=== PATIENT | female | born 1980 | race Caucasian/White ===

== ENCOUNTER 2016-09-29 12:53 | Inpatient (IN) | payer BC ==
[~2016-09-29] VITALS: Ht 162.6 cm; Wt 71.2 kg
[2016-09-29] MEDS: LR 1,000 ML IV SCH ×2 (13:29→14:25)
[2016-09-29 14:30] VITALS: BP_SYST 101
[2016-09-29] MEDS ORDERED: LR 1,000 ML IV ONE (17:05)
[2016-09-29] MEDS ORDERED: DINOPROSTONE 10 MG SUPP VG ONE ×2 (17:15→22:00)
[2016-09-29] MEDS ORDERED: TERBUTALINE SULFATE 1 MG/ML VIAL SUBCUT ONE (17:15)
[2016-09-29] MEDS ORDERED: NALBUPHINE HCL 10 MG/ML AMP IVP PRN (17:15)
[2016-09-29 17:32] LABS: BASOPHILS % (AUTO) 0.2 % (0.0-2.0); EOSINOPHILS # (AUTO) 0.2 K/uL (0.0-0.4); EOSINOPHILS % (AUTO) 1.7 % (0.0-4.0); HEMATOCRIT 34.3 % (36-48); HEMOGLOBIN 11.3 g/dL (12.0-16.0); LYMPHOCYTES # (AUTO) 1.8 K/uL (1.0-5.5); LYMPHOCYTES % (AUTO) 14.7 % (20.5-51.5); MEAN CORPUSCULAR HEMOGLOBIN 32 pg (27-31); MEAN CORPUSCULAR HGB CONC 33 % (32-36); MEAN CORPUSCULAR VOLUME 98 fL (79.0-98.0); MONOCYTES # (AUTO) 0.5 K/uL (0.0-1.0); MONOCYTES % (AUTO) 4.1 % (1.7-9.3); NEUTROPHILS # (AUTO) 10.1 K/uL (1.8-7.7); NEUTROPHILS % (AUTO) 79.3 % (40.0-70.0); PLATELET COUNT (AUTO) 273 K/uL (130-430); RED BLOOD CELL COUNT(AUTO) 3.48 MIL/uL (4.2-6.2); RED CELL DISTRIBUTION WIDTH 12.5 % (9.0-15.0); WHITE BLOOD COUNT (AUTO) 12.6 K/uL (4.8-10.8)
[2016-09-30] MEDS: LR 1,000 ML IV SCH (04:03)
[2016-09-30] MEDS ORDERED: OXYTOCIN/NORMAL SALINE 1,000 ML IV SCH ×2 (07:15→14:34)
[2016-09-30] MEDS ORDERED: FENT2mCg/mL-ROPIVA0.2%/NS EPID 150 ML EP ONE (07:28)
[2016-09-30] MEDS ORDERED: FENT2mCg/mL-ROPIVA0.2%/NS EPID 150 ML EP SCH (07:28)
[2016-09-30] MEDS ORDERED: TERBUTALINE SULFATE 1 MG/ML VIAL SUBCUT ONE (08:30)
[2016-09-30] MEDS ORDERED: OXYTOCIN/NORMAL SALINE 1,000 ML IV ONE (14:34)
[2016-09-30] MEDS ORDERED: DERMOPLAST SPRAY TP PRN (14:45)
[2016-09-30] MEDS ORDERED: ANUSOL 1 EA SUPP.RECT (PREPARATION H) RC PRN (14:45)
[2016-09-30] MEDS ORDERED: METHYLERGONOVINE MALEATE 0.2 MG TABLET PO PRN (14:45)
[2016-09-30] MEDS ORDERED: LANOLIN 7 GM OINT. TP PRN (14:45)
[2016-09-30] MEDS ORDERED: DOCUSATE SODIUM 100 MG CAPSULE PO PRN (14:45)
[2016-09-30] MEDS ORDERED: SENNOSIDES/DOCUSATE SODIUM 1 TAB TABLET(SENOKOT-S) PO PRN (14:45)
[2016-09-30] MEDS ORDERED: HYDROCORTISONE 0.5%, 28.35 GM TOPICAL CREAM TP PRN (14:45)
[2016-09-30] MEDS ORDERED: OXYCODONE/ACETAMINOPHEN 5-325 TABLET PO PRN (14:45)
[2016-09-30] MEDS ORDERED: GLYCERIN/WITCH HAZEL (TUCKS PADS) TP PRN (14:45)
[2016-09-30] MEDS: OXYCODONE/ACETAMINOPHEN 5-325 TABLET PO PRN ×2 (16:16→21:38)
[2016-09-30] MEDS: IBUPROFEN 600 MG TABLET PO SCH ×2 (17:56→23:34)
[2016-09-30] MEDS ORDERED: TEMAZEPAM 15 MG CAPSULE PO PRN (21:00)
[2016-10-01] MEDS: OXYCODONE/ACETAMINOPHEN 5-325 TABLET PO PRN ×3 (06:03→15:16)
[2016-10-01] MEDS: IBUPROFEN 600 MG TABLET PO SCH ×3 (06:04→17:47)
[2016-10-01 07:00] LABS: EOSINOPHILS # (AUTO) 0.4 K/uL (0.0-0.4); HEMOGLOBIN 10.5 g/dL (12.0-16.0); MEAN CORPUSCULAR HGB CONC 33 % (32-36); MONOCYTES # (AUTO) 1.1 K/uL (0.0-1.0)
[2016-10-01 07:10] LABS: BASOPHILS % (AUTO) 0.1 % (0.0-2.0); EOSINOPHILS % (AUTO) 2.5 % (0.0-4.0); HEMATOCRIT 31.4 % (36-48); LYMPHOCYTES # (AUTO) 2.3 K/uL (1.0-5.5); LYMPHOCYTES % (AUTO) 14.1 % (20.5-51.5); MEAN CORPUSCULAR HEMOGLOBIN 33 pg (27-31); MEAN CORPUSCULAR VOLUME 98 fL (79.0-98.0); MONOCYTES % (AUTO) 6.9 % (1.7-9.3); NEUTROPHILS # (AUTO) 12.4 K/uL (1.8-7.7); NEUTROPHILS % (AUTO) 76.4 % (40.0-70.0); PLATELET COUNT (AUTO) 247 K/uL (130-430); RED BLOOD CELL COUNT(AUTO) 3.19 MIL/uL (4.2-6.2); RED CELL DISTRIBUTION WIDTH 12.5 % (9.0-15.0); WHITE BLOOD COUNT (AUTO) 16.2 K/uL (4.8-10.8)
[2016-10-01] MEDS ORDERED: MINERAL OIL 30 ML UDC PO ONE (19:49)
== END 2016-10-01 19:50 | disposition home or self-care (01) | DRG 775 ==
LOC: SPU 12:53 → OBSVTOIN 12:53 → SPU 18:10
PROVIDERS: ADMIT Specialist; ATTEND Specialist
PROC: 10E0XZZ Delivery of Products of Conception, External Approach (ICD-10-PCS; principal; 2016-09-30)
PROC: 4A0HXCZ Measurement of Products of Conception, Cardiac Rate, External Approach (ICD-10-PCS; 2016-09-30)
PROC: 0W8NXZZ Division of Female Perineum, External Approach (ICD-10-PCS; 2016-09-30)
PROC: 3E0S3CZ (ICD-10-PCS; 2016-09-30)
PROC: 00HU33Z Insertion of Infusion Device into Spinal Canal, Percutaneous Approach (ICD-10-PCS; 2016-09-30)
PROC: 3E0P7GC Introduction of Other Therapeutic Substance into Female Reproductive, Via Natural or Artificial Opening (ICD-10-PCS; 2016-09-30)
DX: O41.03X0 Oligohydramnios, third trimester, not applicable or unspecified (principal); O36.5930 Maternal care for other known or suspected poor fetal growth, third trimester, not applicable or unspecified; O76 Abnormality in fetal heart rate and rhythm complicating labor and delivery; Z3A.37 37 weeks gestation of pregnancy; Z37.0 Single live birth; O09.523 Supervision of elderly multigravida, third trimester
CPT/HCPCS: 36415; 81002-TC; 85025; 86592; 86886; 86900; 86901; 94760; J2300; J2590; J3010; J7120

== ENCOUNTER 2017-06-19 16:14 | Emergency (ER) | payer BC ==
[~2017-06-19] VITALS: Ht 162.6 cm; Wt 71.2 kg
[2017-06-19 16:21] VITALS: BP_SYST 111
[2017-06-19 17:31] LABS: BASOPHILS % (AUTO) 0.2 % (0.0-2.0); EOSINOPHILS # (AUTO) 0.8 K/uL (0.0-0.4); EOSINOPHILS % (AUTO) 10.8 % (0.0-4.0); HEMOGLOBIN 13.7 g/dL (12.0-16.0); LYMPHOCYTES # (AUTO) 2.2 K/uL (1.0-5.5); MEAN CORPUSCULAR HEMOGLOBIN 34 pg (27-31); MEAN CORPUSCULAR HGB CONC 34 % (32-36); MEAN CORPUSCULAR VOLUME 98 fL (79.0-98.0); MONOCYTES # (AUTO) 0.5 K/uL (0.0-1.0); MONOCYTES % (AUTO) 6.9 % (1.7-9.3); NEUTROPHILS % (AUTO) 53.1 % (40.0-70.0); PLATELET COUNT (AUTO) 291 K/uL (130-430); RED BLOOD CELL COUNT(AUTO) 4.07 MIL/uL (4.2-6.2); RED CELL DISTRIBUTION WIDTH 12.1 % (9.0-15.0); WHITE BLOOD COUNT (AUTO) 7.5 K/uL (4.8-10.8)
[2017-06-19 17:35] LABS: CALCIUM 9.2 mg/dL (8.4-11.0); CREATININE 0.46 mg/dL (0.55-1.30); POTASSIUM 3.4 mmol/L (3.5-5.1)
[2017-06-19 17:38] LABS: PROTHROMBIN TIME 10.3 SECS (9.5-12.5)
[2017-06-19 18:11] LABS: ALBUMIN 3.9 g/dL (3.4-4.8); TOTAL BILIRUBIN 0.2 mg/dL (0.0-1.0)
[2017-06-19 18:42] LABS: BILIRUBIN,URINE NEGATIVE (NEGATIVE); BLOOD, URINE 3+ (NEGATIVE); CLARITY/URINE CLEAR (CLEAR); COLOR,URINE YELLOW (YELLOW); GLUCOSE,URINE NEGATIVE (NEGATIVE); KETONES,URINE NEGATIVE (NEGATIVE); LEUKOCYTE ESTERASE ,URINE NEGATIVE (NEGATIVE); NITRITE, URINE NEGATIVE (NEGATIVE); PROTEIN URINE NEGATIVE (NEGATIVE); UROBILINOGEN,URINE 0.2 (0.2-1.0)
[2017-06-19 18:49] LABS: BACTERIA,URINE None Seen /HPF (None Seen); RBC,URINE 0-3 /HPF (0-3); WBC,URINE NONE SEEN /HPF (0-3)
[2017-06-19 18:50] LABS: MUCUS,URINE None Seen /LPF (None Seen)
[2017-06-19 18:51] VITALS: BP_SYST 111
== END 2017-06-19 18:51 | disposition home or self-care (01) ==
LOC: SED 16:14
DX: O20.9 Hemorrhage in early pregnancy, unspecified (principal); Z3A.09 9 weeks gestation of pregnancy
CPT/HCPCS: 36415; 76801; 76817; 80053; 81000-TC; 84702-TC; 85025; 85610-TC; 85730-TC; 99285

== ENCOUNTER 2018-02-21 20:18 | Emergency (ER) | payer BC ==
[~2018-02-21] VITALS: Ht 162.6 cm; Wt 72.6 kg
[2018-02-21 20:24] VITALS: BP_SYST 129
--- NOTE | 2018-02-21 20:29 | NUR ---
Patient triaged and placed in waiting room. VSS and patient appears in no acute distress at this time. Accompanied by SELF, awaiting available bed, and MD notified of need for MSE.
--- NOTE | 2018-02-21 21:08 | NUR ---
Patient to ER bed 08 to gown for evaluation. Side rails up. Report given to LEIA Peters
--- NOTE | 2018-02-21 21:15 | NUR ---
Pt brought by self, A&Ox4, pt presents to ER with vaginal bleeding and cramping , states she is 4 weeks , pt completed 5 test at home and they were positive, current test is negative, skin pink and warm, cap refill <3, denies N/V/D.
--- NOTE | 2018-02-21 21:20 | NUR ---
Dr Dick at bedside examining patient.
--- NOTE | 2018-02-21 22:18 | NUR ---
Pt A&Ox4, respirations even and unlabored
[2018-02-21 22:40] VITALS: BP_SYST 129
--- NOTE | 2018-02-21 22:43 | NUR ---
Patient given written and verbal discharge instructions and verbalizes understanding. ER MD discussed with patient the results and treatment provided. Patient in stable condition. ID arm band removed. No Rx given. Patient educated on pain management and to follow up with PMD. Pain Scale 0/10 tolerable for pt . Opportunity for questions provided and answered. Medication side effect fact sheet provided.
== END 2018-02-21 22:40 | disposition home or self-care (01) ==
LOC: SED 20:18
DX: O26.891 Other specified pregnancy related conditions, first trimester (principal); N92.0 Excessive and frequent menstruation with regular cycle; Z3A.01 Less than 8 weeks gestation of pregnancy; R03.0 Elevated blood-pressure reading, without diagnosis of hypertension
CPT/HCPCS: 36415; 84702-TC; 99283

== ENCOUNTER 2018-11-10 16:10 | Observation (INO) | payer BC | END 2018-11-10 18:07 | disposition home or self-care (01) | LOC: SPU 16:10 | PROVIDERS: ADMIT Specialist; ATTEND Specialist | DX: O62.9 Abnormality of forces of labor, unspecified (principal); Z3A.34 34 weeks gestation of pregnancy | CPT/HCPCS: G0378 ==

== ENCOUNTER 2018-12-09 13:20 | Inpatient (IN) | payer BC ==
[~2018-12-09] VITALS: Ht 162.6 cm; Wt 69.9 kg
[2018-12-09] MEDS ORDERED: LR 1,000 ML IV SCH (13:27)
[2018-12-09] MEDS ORDERED: OXYTOCIN/0.9 % SODIUM CHLORIDE 1,000 ML IV SCH (13:27)
[2018-12-09] MEDS ORDERED: DINOPROSTONE 10 MG SUPP VG ONE (13:30)
[2018-12-09] MEDS ORDERED: NALBUPHINE HCL 10 MG/ML AMP IVP PRN (13:30)
[2018-12-09 14:25] LABS: BASOPHILS % (AUTO) 0.3 % (0.0-2.0); EOSINOPHILS # (AUTO) 0.1 K/uL (0.0-0.4); EOSINOPHILS % (AUTO) 1.3 % (0.0-4.0); HEMATOCRIT 34.4 % (36-48); HEMOGLOBIN 11.7 g/dL (12.0-16.0); LYMPHOCYTES # (AUTO) 1.1 K/uL (1.0-5.5); LYMPHOCYTES % (AUTO) 12.8 % (20.5-51.5); MEAN CORPUSCULAR HEMOGLOBIN 34 pg (27-31); MEAN CORPUSCULAR HGB CONC 34 % (32-36); MEAN CORPUSCULAR VOLUME 100 fL (79.0-98.0); MONOCYTES # (AUTO) 0.4 K/uL (0.0-1.0); MONOCYTES % (AUTO) 4.7 % (1.7-9.3); NEUTROPHILS # (AUTO) 7.1 K/uL (1.8-7.7); NEUTROPHILS % (AUTO) 80.9 % (40.0-70.0); PLATELET COUNT (AUTO) 227 K/uL (130-430); RED BLOOD CELL COUNT(AUTO) 3.45 MIL/uL (4.2-6.2); RED CELL DISTRIBUTION WIDTH 13.4 % (9.0-15.0); WHITE BLOOD COUNT (AUTO) 8.8 K/uL (4.8-10.8)
[2018-12-09 17:36] VITALS: BP_SYST 101
[2018-12-10] MEDS ORDERED: fentaNYL CITRATE/PF 100 MCG/2 ML AMP ONE (06:21)
[2018-12-10] MEDS ORDERED: ROPIVACAINE HCL/PF 0.2% 100 ML ONE (06:21)
[2018-12-10] MEDS ORDERED: LR 500 ML IV ONE (06:30)
[2018-12-10] MEDS ORDERED: FENT2mCg/mL-ROPIVA0.2%/NS EPID 200 ML EP SCH (06:30)
[2018-12-10] MEDS ORDERED: OXYTOCIN/0.9 % SODIUM CHLORIDE 1,000 ML IV SCH (10:39)
[2018-12-10] MEDS ORDERED: OXYTOCIN/0.9 % SODIUM CHLORIDE 1,000 ML IV ONE (10:39)
[2018-12-10] MEDS ORDERED: MEASLES,MUMPS&RUBELLA VACC/PF 12500 UNIT/0.5 ML VIAL SUBQ PRN (10:45)
[2018-12-10] MEDS ORDERED: DERMOPLAST SPRAY TP PRN (10:45)
[2018-12-10] MEDS ORDERED: OXYCODONE/ACETAMINOPHEN 5-325 TABLET PO PRN (10:45)
[2018-12-10] MEDS ORDERED: WITCH HAZEL LEAF 1 MED.PAD MED.PAD TP PRN (10:45)
[2018-12-10] MEDS ORDERED: LANOLIN 7 GM OINT. TP PRN (10:45)
[2018-12-10] MEDS ORDERED: HYDROCORTISONE 0.5%, 28.35 GM TOPICAL CREAM TP PRN (10:45)
[2018-12-10] MEDS ORDERED: SENNOSIDES/DOCUSATE SODIUM 1 TAB TABLET(SENOKOT-S) PO PRN (10:45)
[2018-12-10] MEDS ORDERED: HYDROcodone/ACETAMIN 5-325 MG TAB (NORCO/ VICODIN) PO PRN (10:45)
[2018-12-10] MEDS ORDERED: DIPH-TET-PERTUS Vaccine 0.5 ML VIAL (ADACEL) I.M. PRN (10:45)
[2018-12-10] MEDS ORDERED: ANUSOL 1 EA SUPP.RECT (PREPARATION H) RC PRN (10:45)
[2018-12-10] MEDS ORDERED: RHO(D) IMMUNE GLOBULIN/MALTOSE 1500 UNITS/1.3 ML (WINHRO) IM PRN (10:45)
[2018-12-10] MEDS: DOCUSATE SODIUM 100 MG CAPSULE PO PRN (14:41)
[2018-12-10] MEDS: IBUPROFEN 600 MG TABLET PO SCH ×2 (18:13→23:50)
[2018-12-10] MEDS ORDERED: TEMAZEPAM 15 MG CAPSULE PO PRN (21:00)
[2018-12-10] MEDS: OXYCODONE/ACETAMINOPHEN 5-325 TABLET PO PRN (22:46)
[2018-12-11] MEDS: IBUPROFEN 600 MG TABLET PO SCH ×2 (06:01→12:32)
[2018-12-11] MEDS: DOCUSATE SODIUM 100 MG CAPSULE PO PRN (06:02)
[2018-12-11 06:37] LABS: BASOPHILS % (AUTO) 0.2 % (0.0-2.0); EOSINOPHILS # (AUTO) 0.3 K/uL (0.0-0.4); EOSINOPHILS % (AUTO) 2.5 % (0.0-4.0); HEMATOCRIT 30.1 % (36-48); HEMOGLOBIN 10.3 g/dL (12.0-16.0); LYMPHOCYTES # (AUTO) 2.2 K/uL (1.0-5.5); MEAN CORPUSCULAR HEMOGLOBIN 34 pg (27-31); MEAN CORPUSCULAR HGB CONC 34 % (32-36); MEAN CORPUSCULAR VOLUME 100 fL (79.0-98.0); MONOCYTES # (AUTO) 0.8 K/uL (0.0-1.0); MONOCYTES % (AUTO) 7.2 % (1.7-9.3); NEUTROPHILS # (AUTO) 8.2 K/uL (1.8-7.7); NEUTROPHILS % (AUTO) 71.1 % (40.0-70.0); PLATELET COUNT (AUTO) 203 K/uL (130-430); RED BLOOD CELL COUNT(AUTO) 3.01 MIL/uL (4.2-6.2); RED CELL DISTRIBUTION WIDTH 13.8 % (9.0-15.0); WHITE BLOOD COUNT (AUTO) 11.5 K/uL (4.8-10.8)
[2018-12-11] MEDS: OXYCODONE/ACETAMINOPHEN 5-325 TABLET PO PRN ×2 (08:00→13:54)
[2018-12-11] MEDS ORDERED: MINERAL OIL 30 ML UDC PO ONE (15:06)
== END 2018-12-11 15:40 | disposition home or self-care (01) | DRG 807 ==
LOC: SPU 13:20
PROVIDERS: ADMIT Specialist; ATTEND Specialist
PROC: 3E0R3BZ Introduction of Anesthetic Agent into Spinal Canal, Percutaneous Approach (ICD-10-PCS; principal; 2018-12-10)
PROC: 10E0XZZ Delivery of Products of Conception, External Approach (ICD-10-PCS; 2018-12-10)
PROC: 00HU33Z Insertion of Infusion Device into Spinal Canal, Percutaneous Approach (ICD-10-PCS; 2018-12-10)
PROC: 3E0P7VZ Introduction of Hormone into Female Reproductive, Via Natural or Artificial Opening (ICD-10-PCS; 2018-12-10)
DX: O36.5930 Maternal care for other known or suspected poor fetal growth, third trimester, not applicable or unspecified (principal); Z37.0 Single live birth; Z3A.37 37 weeks gestation of pregnancy
CPT/HCPCS: 36415; 85025; 86592; 86886; 86900; 86901; 90715; J2300; J2590; J2795; J3010; J7120

== ENCOUNTER 2020-07-17 15:13 | Inpatient (IN) | payer BC, SELFPAY ==
[~2020-07-17] VITALS: Ht 162.6 cm; Wt 70.8 kg
[~2020-07-17 15:13] MED LIST: BUPIVACAINE /PF 0.75% 10 ML VIAL INJ ONE; LR 1,000 ML IV.SOLN IV ONE; MORPHINE SULFATE 10MG/10ML PF AMP EP ONE; NS 1000 ML IV.SOLN IV ONE; ONDANSETRON HCL 4 MG/2 ML VIAL IVP ONE
[2020-07-17] MEDS ORDERED: CEFAZOLIN 2 GM IVPB PREMIX 50 ML IV ONE (16:45)
[2020-07-17 17:10] LABS: BASOPHILS % (AUTO) 0.2 % (0.0-2.0); EOSINOPHILS # (AUTO) 0.1 K/uL (0.0-0.4); EOSINOPHILS % (AUTO) 0.8 % (0.0-4.0); HEMATOCRIT 33.4 % (36-48); HEMOGLOBIN 11.1 g/dL (12.0-16.0); LYMPHOCYTES # (AUTO) 1.6 K/uL (1.0-5.5); LYMPHOCYTES % (AUTO) 14.7 % (20.5-51.5); MEAN CORPUSCULAR HEMOGLOBIN 32 pg (27-31); MEAN CORPUSCULAR HGB CONC 33 % (32-36); MEAN CORPUSCULAR VOLUME 97 fL (79.0-98.0); MONOCYTES # (AUTO) 0.7 K/uL (0.0-1.0); MONOCYTES % (AUTO) 6.3 % (1.7-9.3); NEUTROPHILS # (AUTO) 8.7 K/uL (1.8-7.7); PLATELET COUNT (AUTO) 268 K/uL (130-430); RED BLOOD CELL COUNT(AUTO) 3.45 MIL/uL (4.2-6.2); RED CELL DISTRIBUTION WIDTH 13.7 % (9.0-15.0); WHITE BLOOD COUNT (AUTO) 11.1 K/uL (4.8-10.8)
[2020-07-17 17:20] LABS: BILIRUBIN,URINE NEGATIVE (NEGATIVE); COLOR,URINE YELLOW (YELLOW); GLUCOSE,URINE NEGATIVE (NEGATIVE); KETONES,URINE NEGATIVE (NEGATIVE); LEUKOCYTE ESTERASE ,URINE 2+ (NEGATIVE); NITRITE, URINE NEGATIVE (NEGATIVE); PROTEIN URINE NEGATIVE (NEGATIVE); UROBILINOGEN,URINE 0.2 (0.2-1.0)
[2020-07-17 17:24] LABS: BLOOD, URINE TRACE (NEGATIVE); CLARITY/URINE HAZY (CLEAR)
[2020-07-17 17:29] LABS: BACTERIA,URINE MODERATE /HPF (None Seen); MUCUS,URINE None Seen /LPF (None Seen)
[2020-07-17 18:34] VITALS: BP_SYST 103
[2020-07-17] MEDS: OXYTOCIN/0.9 % SODIUM CHLORIDE 1,000 ML IV SCH (20:00)
[2020-07-17] MEDS ORDERED: NALBUPHINE HCL 10 MG/ML AMP ONE (20:18)
[2020-07-17] MEDS: NALBUPHINE HCL 10 MG/ML AMP IM PRN (20:25)
[2020-07-18] MEDS ORDERED: LR 1,000 ML IV ONE (00:01)
[2020-07-18] MEDS: NALBUPHINE HCL 10 MG/ML AMP IM PRN (01:40)
[2020-07-18] MEDS ORDERED: CEFAZOLIN 2 GM IVPB PREMIX 50 ML IV ONE (05:44)
[2020-07-18] MEDS ORDERED: MORPHINE SULFATE 10MG/10ML PF AMP ONE (06:10)
[2020-07-18] MEDS ORDERED: DIPHENHYDRAMINE INJ 50 MG/ML VIAL IVP PRN (06:45)
[2020-07-18] MEDS ORDERED: ONDANSETRON HCL 4 MG/2 ML VIAL IVP PRN (06:45)
[2020-07-18] MEDS ORDERED: NALBUPHINE HCL 10 MG/ML AMP IVP PRN (06:45)
[2020-07-18] MEDS ORDERED: MORPHINE SULFATE 10MG/10ML PF AMP SP SCH (06:45)
[2020-07-18] MEDS ORDERED: NALOXONE HCL 0.4 MG/ML AMP (NARCAN) IVP PRN ×3 (06:45→07:15)
[2020-07-18] MEDS ORDERED: KETOROLAC TROMETHAMINE 60 MG/2 ML VIAL IM PRN (06:45)
[2020-07-18] MEDS ORDERED: fentaNYL CITRATE/PF 100 MCG/2 ML AMP IVP PRN ×2 (06:45)
[2020-07-18] MEDS ORDERED: MEASLES,MUMPS&RUBELLA VACC/PF 12500 UNIT/0.5 ML VIAL SUBQ PRN (07:15)
[2020-07-18] MEDS ORDERED: HYDROcodone/ACETAMIN 5-325 MG TAB (NORCO/ VICODIN) PO PRN (07:15)
[2020-07-18] MEDS ORDERED: BISACODYL 10 MG/SUPPOSITORY RC PRN (07:15)
[2020-07-18] MEDS ORDERED: OXYCODONE/ACETAMINOPHEN 5-325 TABLET PO PRN (07:15)
[2020-07-18] MEDS ORDERED: RHO(D) IMMUNE GLOBULIN/MALTOSE 1500 UNITS/1.3 ML (WINHRO) IM PRN (07:15)
[2020-07-18] MEDS ORDERED: TEMAZEPAM 15 MG CAPSULE PO PRN (07:15)
[2020-07-18] MEDS ORDERED: DIPH-TET-PERTUS Vaccine 0.5 ML VIAL (ADACEL) I.M. PRN (07:15)
[2020-07-18] MEDS ORDERED: LR 1,000 ML IV SCH (07:15)
[2020-07-18] MEDS ORDERED: LANOLIN 7 GM OINT. TP PRN (07:15)
[2020-07-18] MEDS ORDERED: ANUSOL 1 EA SUPP.RECT (PREPARATION H) RC PRN (07:15)
[2020-07-18 07:20] VITALS: BP_SYST 95
[2020-07-18] MEDS ORDERED: MIDAZOLAM HCL 5 MG/5 ML VIAL IVP ONE (07:45)
[2020-07-18] MEDS ORDERED: MIDAZOLAM HCL 2 MG/2 ML VIAL (VERSED) ONE (07:53)
[2020-07-18] MEDS ORDERED: OXYTOCIN/0.9 % SODIUM CHLORIDE 1,000 ML IV ONE (10:07)
[2020-07-18] MEDS: OXYTOCIN/0.9 % SODIUM CHLORIDE 1,000 ML IV SCH (10:30)
[2020-07-18] MEDS: KETOROLAC TROMETHAMINE 30 MG VIAL IVP SCH ×2 (12:02→18:04)
[2020-07-18] MEDS: CEFAZOLIN 1 GM IVPB PREMIX 50 ML IV SCH ×2 (12:03→18:06)
[2020-07-18] MEDS ORDERED: TEMAZEPAM 15 MG CAPSULE PO ONE (16:00)
[2020-07-18] MEDS: SIMETHICONE 80 MG TAB.CHEW PO PRN (18:06)
[2020-07-18] MEDS: DOCUSATE SODIUM 100 MG CAPSULE PO PRN (18:06)
[2020-07-18] MEDS: SENNOSIDES/DOCUSATE SODIUM 1 TAB TABLET(SENOKOT-S) PO PRN (18:07)
[2020-07-19] MEDS: OXYTOCIN/0.9 % SODIUM CHLORIDE 1,000 ML IV SCH
[2020-07-19] MEDS: CEFAZOLIN 1 GM IVPB PREMIX 50 ML IV SCH (01:22)
[2020-07-19] MEDS: KETOROLAC TROMETHAMINE 30 MG VIAL IVP SCH ×2 (06:00)
[2020-07-19] MEDS: SIMETHICONE 80 MG TAB.CHEW PO PRN ×3 (06:41→21:08)
[2020-07-19 07:42] LABS: BASOPHILS % (AUTO) 0.1 % (0.0-2.0); EOSINOPHILS # (AUTO) 0.1 K/uL (0.0-0.4); EOSINOPHILS % (AUTO) 0.9 % (0.0-4.0); HEMATOCRIT 28.1 % (36-48); HEMOGLOBIN 9.4 g/dL (12.0-16.0); LYMPHOCYTES # (AUTO) 1.3 K/uL (1.0-5.5); LYMPHOCYTES % (AUTO) 9.7 % (20.5-51.5); MEAN CORPUSCULAR HEMOGLOBIN 32 pg (27-31); MEAN CORPUSCULAR HGB CONC 33 % (32-36); MEAN CORPUSCULAR VOLUME 97 fL (79.0-98.0); MONOCYTES % (AUTO) 7.8 % (1.7-9.3); NEUTROPHILS # (AUTO) 10.8 K/uL (1.8-7.7); NEUTROPHILS % (AUTO) 81.5 % (40.0-70.0); PLATELET COUNT (AUTO) 235 K/uL (130-430); RED BLOOD CELL COUNT(AUTO) 2.89 MIL/uL (4.2-6.2); RED CELL DISTRIBUTION WIDTH 13.7 % (9.0-15.0); WHITE BLOOD COUNT (AUTO) 13.3 K/uL (4.8-10.8)
[2020-07-19] MEDS: OXYCODONE/ACETAMINOPHEN *10*mg/325 mg TABLET PO PRN ×3 (08:44→21:09)
[2020-07-19] MEDS: IBUPROFEN 600 MG TABLET PO SCH ×2 (12:43→18:05)
[2020-07-19] MEDS ORDERED: ACETAMINOPHEN 325 MG TABLET PO PRN (14:30)
[2020-07-19] MEDS: PHENobarbital 30 MG TABLET PO PRN ×3 (14:50→22:03)
[2020-07-20] MEDS: SIMETHICONE 80 MG TAB.CHEW PO PRN ×4 (00:15→23:42)
[2020-07-20] MEDS: IBUPROFEN 600 MG TABLET PO SCH ×5 (00:15→23:42)
[2020-07-20] MEDS: OXYCODONE/ACETAMINOPHEN *10*mg/325 mg TABLET PO PRN ×2 (06:13→20:53)
[2020-07-20] MEDS: PHENobarbital 30 MG TABLET PO PRN ×2 (08:35→20:53)
[2020-07-20] MEDS: DOCUSATE SODIUM 100 MG CAPSULE PO PRN ×2 (12:05→23:42)
[2020-07-20] MEDS: SENNOSIDES/DOCUSATE SODIUM 1 TAB TABLET(SENOKOT-S) PO PRN (20:53)
[2020-07-21] MEDS: OXYCODONE/ACETAMINOPHEN *10*mg/325 mg TABLET PO PRN ×2 (04:03→12:05)
[2020-07-21] MEDS: PHENobarbital 30 MG TABLET PO PRN ×2 (04:03→12:05)
[2020-07-21] MEDS: DOCUSATE SODIUM 100 MG CAPSULE PO PRN ×2 (05:25→12:05)
[2020-07-21] MEDS: SIMETHICONE 80 MG TAB.CHEW PO PRN ×2 (05:25→12:05)
[2020-07-21] MEDS: IBUPROFEN 600 MG TABLET PO SCH ×2 (05:25→12:06)
[2020-07-22 20:06] LABS: FTA-Ab (T PALLIDUM) Non Reactive (Non Reactive)
== END 2020-07-21 14:00 | disposition home or self-care (01) | DRG 787 ==
LOC: SPU 15:13
PROVIDERS: ADMIT Specialist; ATTEND Specialist
PROC: 10D00Z1 Extraction of Products of Conception, Low, Open Approach (ICD-10-PCS; principal; 2020-07-18 06:00)
DX: O32.1XX0 Maternal care for breech presentation, not applicable or unspecified (principal); O41.03X0 Oligohydramnios, third trimester, not applicable or unspecified; Z20.822 Contact with and (suspected) exposure to COVID-19; Z3A.37 37 weeks gestation of pregnancy; Z37.0 Single live birth
CPT/HCPCS: 36415; 81000-TC; 85025; 86592; 86780; 86886; 86900; 86901; 87086; J0690; J1885; J2274; J2300; J2405; J2590; J3465; J3490; J7030; J7120